=== PATIENT | male | born 1945 | race Caucasian/White ===

== ENCOUNTER 2018-06-21 14:48 | Outpatient (RCR) | payer BC, MEDICARE ==
--- NOTE | 2018-06-09 14:09 | CARECAPL ---
Assessment Account #s: Initial Assessment General Diagnoses: CABG Date of event: Apr 20, 2018 Physician: Greg Gómez MD Allergies: Coded Allergies: Cortez Inhibitors (Verified Allergy, Mild, cough, 06/09/18) Beta-Blockers (Beta-Adrenergic Bloc (Verified Allergy, Mild, headache, 06/09/18) Mjnmbti-Bfy-Ram Reductase Inhibitor (Verified Allergy, Mild, muscle aches, 06/09/18) Date Entered Program: Jun 09, 2018 Risk strat for cardiac event: Low Exercise Date: Jun 09, 2018 Assessment: Initial Assessment Exercise Prescription Plan educate and increase endurance through exercise Modalities initiated: Treadmill (speed 1.5 for 8 mins), Nustep (level 1 for 10mins), Arm Aerometer (1.0 for 6 mins), Dumbells (1lb 8-10 reps), Recumbent B arabella (resistance of 1 for 6 mins) Frequency: 2-3 Duration (Minutes) 30-60 minutes total exercise a day. 6-10 work intervals in minutes. prn rest intervals in minutes. Functional Capacity Goal Sustained Metabolic Equivalent of a task (MET) goal of 2.0-2.5 for 6-15 minutes. Intensity: 3-Moderate Progression (METS) Increase by: 0.5 METS every: 3-5 sessions Angina with ex: No Target Heart Rate 89-119 age predicted Resistance Training: Yes Weight (pounds): 1 Reps: 8-12 Hypertension: No Hypertension controlled with: Medication (Losartan ) Medications Scheduled Aspirin (Aspirin), 81 MG PO DAILY, (Reported) Cannabidiol (Cbd Oil), 6 ML OR DAILY, (Reported) Clopidogrel Bisulfate (Clopidogrel), 75 MG PO DAILY, (Reported) Esomeprazole Magnesium (Esomeprazole Magnesium), 40 MG PO DAILY, (Reported) Losartan Potassium (Losartan Potassium), 25 MG PO DAILY, (Reported) Magnesium Oxide (Magnesium Oxide), 400 MG PO DAILY, (Reported) Potassium Chloride (Potassium Chloride), 20 MEQ PO DAILY, (Reported) Sertraline Hcl (Zoloft), 100 MG PO DAILY, (Reported) Simvastatin (Simvastatin), 10 MG PO QHS, (Reported) Sucralfate (Sucralfate), 1 GRAM PO QHS, (Reported) Education Goals Met: No Target Goals Individual exercise Rx (1) BP 140/90 or 130/80 if DM or CKD (1) Aerobic active 30+min 5 days per week (1) Nutrition Date: Jun 09, 2018 Assessment: Initial Assessment Lipid- med/supplement pravastatin Diabetes Diabetes: No Monitor Blood Sugar at home: No Weight Management Weight (lbs): 190.8 Height (inches): 67 Waist Circumference (Inches): 42 BMI: 29.75 Special Diet: low salt, low-fat Alcohol: none Diet Access Tool: Rate your plate Score: 58 Intervention Associate Technician Consult: No Nurse/patient discussion: No Dietary Goals eat healthier Diet Class: No Referral to Diabetes education: No Referral to lipid clinic: No Referral to weight mangement p: No Education Goals Met: No Target goal LDL-C<100 if triglycerides are >200 Non-HDL-C should be <130 (1) LDL-C<70 for high risk patients (4) HbA1c<7% (1) BMI<25 Waist cir<40in M/<35in F (1) Education Date: Jun 09, 2018 Assessment: Initial Assessment Learning Barriers: cognitive (age related) Knowledge Test Score: 8 Family Support: Yes Tobacco use: No Quit: never smoked Education Goals Met: No Target Goals Complete cessation of tobacco use (1). Psychosocial Date: Jun 09, 2018 Assessment: Initial Assessment Psych Test (Initial/Discharge) Tool Used: CESD Score: 3 Intervention Physician Consult: No Physician Referral: No Psychotropic medication zoloft Education Goals Met: No Target Goal Assess presence or absence of depression using a valid screening tool (1). Maximize coping skills (2). Positive support system (2). Patient/Program Goal Preventative Medication: Yes Aspirin, Yes Clopidogrel, Yes CORTEZ Inhibitor, Yes Statin/OTR lipid Lowering Fall Risk Assess: No Provider Assessment Session Number: 0 Provider Assessment: Proceed with rehab Nyla Pandey RN Jun 09, 2018 14:09
[~2018-06-21 14:48] MED LIST: ASPI81CH33 PO; CBD OIL OR; CLOP75TA2 PO; ESOM1CAP5 PO; LOSA25TA14 PO; MAGN400T PO; POTA20TA6 PO; SIMV10TA2 PO; SUCR1TAB56 PO; ZOLO100T PO
== END 2018-06-22 ==
LOC: M CR 14:48
PROVIDERS: ATTEND Internal Medicine Cardiovascular Disease
DX: Z95.818 Presence of other cardiac implants and grafts (principal)

== ENCOUNTER → 2018-07-23 | Outpatient (RCR) | payer MEDICARE ==
--- NOTE | 2018-07-05 15:55 | CARECAPL ---
Assessment Account #s: Re-Assessment I General Diagnoses: CABG Date of event: Apr 20, 2018 Physician: Greg Gómez MD Allergies: Coded Allergies: RACHELE Inhibitors (Verified Allergy, Mild, cough, 06/09/18) Beta-Blockers (Beta-Adrenergic Bloc (Verified Allergy, Mild, headache, 06/09/18) Bltmfad-Nye-Qyn Reductase Inhibitor (Verified Allergy, Mild, muscle aches, 06/09/18) Date Entered Program: Jun 09, 2018 Risk strat for cardiac event: High Exercise Date: July 05, 2018 Assessment: Re-Assessment I Exercise Prescription Plan TO EDUCATE AND BUILD ENDURANCE THROUGH MONITORED EXERCISE Modalities initiated: Treadmill (3.26/RPE=2), Nustep (METS=5.2/RPE=2), Arm Aerometer (METS=3.8/RPE=2), Dumbells (4#/RPE=2), Recumbent Bike (METS=3.60 /RPE=2) Frequency: 3 Duration (Minutes) 30-60 minutes total exercise a day. 10-15 MIN work intervals in minutes. 5 MIN PRN rest intervals in minutes. Functional Capacity Goal Sustained Metabolic Equivalent of a task (MET) goal of 4.0-5.0 for 15-20 minutes. Intensity: 3-Moderate Progression (METS) Increase by: 0.5 METS every: 3-5 sessions Angina with ex: No Target Heart Rate 89-119 AGE PREDICTED Resistance Training: Yes Weight (pounds): 4 Hypertension: Yes Hypertension controlled with: Medication Resting 142/84 Peak Exercise BP 150/76 Medications Scheduled Aspirin (Aspirin), 81 MG PO DAILY, (Reported) Cannabidiol (Cbd Oil), 6 ML OR DAILY, (Reported) Clopidogrel Bisulfate (Clopidogrel), 75 MG PO DAILY, (Reported) Esomeprazole Magnesium (Esomeprazole Magnesium), 40 MG PO DAILY, (Reported) Losartan Potassium (Losartan Potassium), 25 MG PO DAILY, (Reported) Magnesium Oxide (Magnesium Oxide), 400 MG PO DAILY, (Reported) Potassium Chloride (Potassium Chloride), 20 MEQ PO DAILY, (Reported) Sertraline Hcl (Zoloft), 100 MG PO DAILY, (Reported) Simvastatin (Simvastatin), 10 MG PO QHS, (Reported) Sucralfate (Sucralfate), 1 GRAM PO QHS, (Reported) Current BP 132/86 Med Change: No Intervention Resistance Training: Yes Education: Self pulse, Ex safety, S/S to report, Low NA diet, BP medication, RPE Scale, Equipment orientation, warm up/cool down, Understand BP, Physical Active Education Goals Met: No (PROGRESSING TOWARD GOALS) Target Goals Individual exercise Rx (1) BP 140/90 or 130/80 if DM or CKD (1) Aerobic active 30+min 5 days per week (1) Nutrition Date: July 05, 2018 Assessment: Re-Assessment I Lipid- med/supplement SIMVASTATIN Med Change: No Diabetes Diabetes: No Monitor Blood Sugar at home: No Medication Change: No Weight Management Weight (lbs): 193.4 Special Diet: low salt, low-fat Alcohol: none Current Weight (pounds): 193.4 Intervention Laser Engraver Consult: No Nurse/patient discussion: Yes Dietary Goals TO MAKE HEART HEALTHY CHOICES Diet Class: Yes Referral to Diabetes education: No Referral to lipid clinic: No Referral to weight mangement p: No Education Eating Healthy Education Goals Met: No (PROGRESSING TOWARD GOALS) Target goal LDL-C<100 if triglycerides are >200 Non-HDL-C should be <130 (1) LDL-C<70 for high risk patients (4) HbA1c<7% (1) BMI<25 Waist cir<40in M/<35in F (1) Education Date: July 05, 2018 Assessment: Re-Assessment I Learning Barriers: ready Family Support: Yes Tobacco use: No Tobacco Use Smokeless tobacco: No Intervention Referral to smoking cessation: No Individual education and couns: No Tobacco Adjunct: No Education class schedule given: No Attended education classes: No Education: tobacco triggers, CAD, Risk factors, med compliance, cardiac A&P, Angina S/S, Sexuality Education Goals Met: No (PROGRESSING TOWARD GOALS) Target Goals Complete cessation of tobacco use (1). Psychosocial Date: July 05, 2018 Assessment: Re-Assessment I Intervention Physician Consult: No Physician Referral: No Med Change: No Stress Management Class: No Uses Stress Management Skills: Yes Education Education: Coping Techniques, S/S depression, Relaxation Techniques Education Goals Met: No Target Goal Assess presence or absence of depression using a valid screening tool (1). Maximize coping skills (2). Positive support system (2). Patient/Program Goal Preventative Medication: Yes Aspirin, Yes Clopidogrel, Yes RACHELE Inhibitor, Yes Statin/OTR lipid Lowering Fall Risk Assess: Yes (NOT A FALL RISK) Provider Assessment Session Number: 8 Provider Assessment: Proceed with rehab Lj Gallardo RN July 05, 2018 15:55
== END ==
LOC: M CR 06-23 09:43
PROVIDERS: ATTEND Internal Medicine Cardiovascular Disease
DX: Z95.818 Presence of other cardiac implants and grafts (principal)

== ENCOUNTER 2018-08-20 09:08 | Outpatient (RCR) | payer MEDICARE ==
--- NOTE | 2018-08-04 08:13 | CARECAPL ---
Assessment Account #s: Re-Assessment II General Diagnoses: CABG Date of event: Apr 20, 2018 Physician: Greg Gómez MD Allergies: Coded Allergies: RACHELE Inhibitors (Verified Allergy, Mild, cough, 06/09/18) Beta-Blockers (Beta-Adrenergic Bloc (Verified Allergy, Mild, headache, 06/09/18) Zbbfkxc-Dch-Joh Reductase Inhibitor (Verified Allergy, Mild, muscle aches, 06/09/18) Date Entered Program: Jun 09, 2018 Risk strat for cardiac event: High Exercise Date: Aug 02, 2018 Assessment: Re-Assessment II Exercise Prescription Plan educate and increase endurance through monitored exercise Modalities initiated: Treadmill (speed 2.7 incline 2.5 for 20 minutes Mets 4.19 RPE 2.5), Nustep (resistence 8 for 18 minutes Mets 5.2 RPE 3), Arm Aerometer (resistence 5.5 for 17 minutes Mets 4.2 RPE 3.5), Dumbells (6lbs RPE 3), Recumbent Bike (Resistence 6 59 nelson for 17 minutes Mets 4.1 RPE 3) Frequency: 3 Duration (Minutes) 30-98 minutes total exercise a day. 6-20 work intervals in minutes. prn rest intervals in minutes. Functional Capacity Goal Sustained Metabolic Equivalent of a task (MET) goal of 4.5-5.5 for 15-20 minutes. Intensity: 3-Moderate Progression (METS) Increase by: 0.5 METS every: 3-5 sessions Angina with ex: No Target Heart Rate 89-119 age predicted 60%-80% Resistance Training: Yes Weight (pounds): 6 Reps: 12-15 Medications Scheduled Aspirin (Aspirin), 81 MG PO DAILY, (Reported) Cannabidiol (Cbd Oil), 6 ML OR DAILY, (Reported) Clopidogrel Bisulfate (Clopidogrel), 75 MG PO DAILY, (Reported) Esomeprazole Magnesium (Esomeprazole Magnesium), 40 MG PO DAILY, (Reported) Losartan Potassium (Losartan Potassium), 25 MG PO DAILY, (Reported) Magnesium Oxide (Magnesium Oxide), 400 MG PO DAILY, (Reported) Potassium Chloride (Potassium Chloride), 20 MEQ PO DAILY, (Reported) Sertraline Hcl (Zoloft), 100 MG PO DAILY, (Reported) Simvastatin (Simvastatin), 10 MG PO QHS, (Reported) Sucralfate (Sucralfate), 1 GRAM PO QHS, (Reported) Current BP 110/70 Med Change: No Intervention Education: Self pulse (Patient verbalized understanding and demonstrated task), Ex safety (patient verbalized understanding of use of comfortable shoes, drink plenty of fluids, importance of warm ups and cool downs.), S/S to report (Patient able to demonstrate s/s of CP and when to call MD.), Low NA diet (patient verbalized understanding of NA content in foods we buy at grocery store. NA less than 1500 mg is appropriate to buy.), BP medication (Patient verbalized understanding of medications purpose such as losartan, simvastatin, aspiring and plavix.), RPE Scale (Patient verbalized understanding of RPE scale on its usage.), Equipment orientation (Patient able to use each equipment with minimal difficulty.), warm up/cool down (Patient is able to do warm ups and cool downs without difficulty.), Understand BP (Patient understands his BP and when to call MD d/t high BP.), Physical Active (Discussed the importance of continuing exercise and being physical active after cardiac rehab. Patient verbalized understanding. ) Education Goals Met: Yes Target Goals Individual exercise Rx (1) BP 140/90 or 130/80 if DM or CKD (1) Aerobic active 30+min 5 days per week (1) Nutrition Date: Aug 04, 2018 Assessment: Re-Assessment II Med Change: No Diabetes Diabetes: No Medication Change: No Current Weight (pounds): 193 Weight Goal 175 Intervention Ic Design Manager Consult: No Nurse/patient discussion: Yes Dietary Goals eating healthier and watching his portions. Diet Class: Yes Education Eating Healthy (patient verbalized understanding on picking healthier choices.) Education Goals Met: Yes Target goal LDL-C<100 if triglycerides are >200 Non-HDL-C should be <130 (1) LDL-C<70 for high risk patients (4) HbA1c<7% (1) BMI<25 Waist cir<40in M/<35in F (1) Education Date: Aug 04, 2018 Assessment: Re-Assessment II Intervention Education: CAD (Patient verbalized understanding of causes of CAD. ), Risk factors (Patient verbalized the risk factors to heart disease and the ones he can change and ones he can't change.), med compliance (Patient verbalizes the importance of taking his medications as prescribed. ), cardiac A&P (Patient understanding how the heart fuctions.), Sexuality (patient understands he may have sex when MD clears him.) Education Goals Met: Yes Target Goals Complete cessation of tobacco use (1). Psychosocial Date: Aug 04, 2018 Assessment: Re-Assessment II Med Change: No Stress Management Class: Yes Uses Stress Management Skills: Yes Education Education: Coping Techniques (Patient verbalizes understanding of way to cope with stress ), S/S depression (Patient verbalizes signs and symptoms of depression such as withdrawal from social activities.), Relaxation Techniques (Patient verbalized ways he could relax such as reading a book or golfing. ) Education Goals Met: Yes Target Goal Assess presence or absence of depression using a valid screening tool (1). Maximize coping skills (2). Positive support system (2). Patient/Program Goal Preventative Medication: Yes Aspirin, Yes Clopidogrel, Yes Statin/OTR lipid Lowering, Yes Other (calcium channel luigi) Fall Risk Assess: Yes (not a fall risk) Provider Assessment Session Number: 20 Provider Assessment: Proceed with rehab (progressing) Nyla Pandey RN Aug 04, 2018 08:13
== END 2018-08-22 ==
LOC: M CR 09:08
PROVIDERS: ATTEND Internal Medicine Cardiovascular Disease
DX: Z95.818 Presence of other cardiac implants and grafts (principal)

== ENCOUNTER 2018-09-01 13:03 | Outpatient (RCR) | payer MEDICARE ==
--- NOTE | 2018-09-01 16:38 | CARECAPL ---
Assessment Account #s: Re-Assessment II (DISCHARGE ASSESSMENT) General Diagnoses: CABG Date of event: Apr 20, 2018 Physician: Greg Gómez MD Allergies: Coded Allergies: RACHELE Inhibitors (Verified Allergy, Mild, cough, 06/09/18) Beta-Blockers (Beta-Adrenergic Bloc (Verified Allergy, Mild, headache, 06/09/18) Cexpklv-Qmy-Hav Reductase Inhibitor (Verified Allergy, Mild, muscle aches, 06/09/18) Date Entered Program: Jun 09, 2018 Risk strat for cardiac event: High Exercise Assessment: Followup/Discharge Exercise Prescription Plan TO EDUCATE AND BUILD ENDURANCE THROUGH MONITORED EXERCISE Modalities initiated: Treadmill (METS=4.54/RPE=2), Nustep (METS=6.1/RPE=2), Arm Aerometer (METS=5.5/RPE=2), Dumbells (6#/RPE=2), Recumbent Bike (METS=5.1/RPE=2) Frequency: 3 Duration (Minutes) 30-60 minutes total exercise a day. 12-15 work intervals in minutes. 5 MIN PRN rest intervals in minutes. Functional Capacity Goal Sustained Metabolic Equivalent of a task (MET) goal of 4.5-5.5 for 15-20 minutes. Intensity: 3-Moderate Progression (METS) Increase by: METS every: sessions Angina with ex: No Target Heart Rate 89-119 AGE PREDICTED 60%-80% Resistance Training: Yes Weight (pounds): 6 Reps: 12-15 Hypertension: Yes Hypertension controlled with: Medication Resting 142/82 Peak Exercise BP 160/88 Medications Scheduled Aspirin (Aspirin), 81 MG PO DAILY, (Reported) Cannabidiol (Cbd Oil), 6 ML OR DAILY, (Reported) Clopidogrel Bisulfate (Clopidogrel), 75 MG PO DAILY, (Reported) Esomeprazole Magnesium (Esomeprazole Magnesium), 40 MG PO DAILY, (Reported) Losartan Potassium (Losartan Potassium), 25 MG PO DAILY, (Reported) Magnesium Oxide (Magnesium Oxide), 400 MG PO DAILY, (Reported) Potassium Chloride (Potassium Chloride), 20 MEQ PO DAILY, (Reported) Sertraline Hcl (Zoloft), 100 MG PO DAILY, (Reported) Simvastatin (Simvastatin), 10 MG PO QHS, (Reported) Sucralfate (Sucralfate), 1 GRAM PO QHS, (Reported) Current BP 116/72 Med Change: No Intervention Home exercise: Type (walking, join local gym), Frequency (3-5 days per week), Duration (30-60 minutes) Resistance Training: Yes Education: Self pulse, Ex safety, S/S to report, Low NA diet, BP medication, RPE Scale, Equipment orientation, warm up/cool down, Understand BP, Physical Active Education Goals Met: Yes Target Goals Individual exercise Rx (1) BP 140/90 or 130/80 if DM or CKD (1) Aerobic active 30+min 5 days per week (1) Nutrition Date: Sep 01, 2018 Assessment: Followup/Discharge (SIMVASTATIN) Lipid- med/supplement SIMVASTATIN Med Change: No Diabetes Diabetes: No Monitor Blood Sugar at home: No Medication Change: No Blood sugar in range: No Weight Management Weight (lbs): 186 Height (inches): 67 Special Diet: low salt, low-fat Alcohol: none Diet Access Tool: Rate your plate Score: 61 Current Weight (pounds): 186 Intervention Nurse/patient discussion: Yes Dietary Goals MAKE HEART HEALTHY CHOICES Diet Class: Yes (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) Referral to Diabetes education: No Referral to lipid clinic: No Referral to weight mangement p: No Education Eating Healthy Education Goals Met: Yes Target goal LDL-C<100 if triglycerides are >200 Non-HDL-C should be <130 (1) LDL-C<70 for high risk patients (4) HbA1c<7% (1) BMI<25 Waist cir<40in M/<35in F (1) Education Date: Sep 01, 2018 Assessment: Followup/Discharge Learning Barriers: ready Knowledge Test Score: 10 Family Support: Yes Tobacco use: No Tobacco Use Smokeless tobacco: No Intervention Referral to smoking cessation: No Individual education and couns: No Tobacco Adjunct: No Education class schedule given: No Attended education classes: No Education: CAD, Risk factors, med compliance, cardiac A&P, Angina S/S, Sexuality Education Goals Met: Yes Target Goals Complete cessation of tobacco use (1). Psychosocial Date: Sep 01, 2018 Assessment: Followup/Discharge Psych Test (Initial/Discharge) Tool Used: CESD Score: 2 Intervention Physician Consult: No Physician Referral: No Med Change: No Stress Management Class: No Uses Stress Management Skills: Yes Education Education: Coping Techniques, S/S depression, Relaxation Techniques Education Goals Met: Yes Target Goal Assess presence or absence of depression using a valid screening tool (1). Maximize coping skills (2). Positive support system (2). Patient/Program Goal Preventative Medication: Yes Aspirin, Yes Clopidogrel, Yes Statin/OTR lipid Lowering, Yes Other (CALCIUM CHANNEL BARRY) Fall Risk Assess: Yes (NOT A FALL RISK) Provider Assessment Session Number: 33 Lj Gallardo RN Sep 01, 2018 16:37
== END 2018-09-22 ==
LOC: M CR 13:03
PROVIDERS: ATTEND Internal Medicine Cardiovascular Disease
DX: Z95.1 Presence of aortocoronary bypass graft (principal)

== ENCOUNTER → 2022-05-13 | Outpatient (CLI) | payer MEDICARE ==
[~2022-05-13] MED LIST changes: +LOSA25TA13 PO; -LOSA25TA14 PO; -MAGN400T PO; +MAGN400T33 PO; +POTA-151 PO; -POTA20TA6 PO; -SIMV10TA2 PO; +SIMV10TA21 PO
== END ==
LOC: M CARPUL 09:07
PROVIDERS: ATTEND Internal Medicine Pulmonary Disease
DX: R06.02 Shortness of breath (principal)